=== PATIENT | female | born 2000 | race Hispanic/Latino ===

== ENCOUNTER 2021-01-06 14:19 | Emergency (ER) | payer BC ==
[~2021-01-06] VITALS: Ht 167.6 cm; Wt 65.3 kg
[2021-01-06] MEDS ORDERED: TETANUS/DIPHTHERIA TOXOID [ADULT] 0.5 ML VIAL IM SCH (15:45)
[2021-01-06] MEDS ORDERED: LIDOCAINE HCL 1% 20 ML VIAL ONE (16:58)
[2021-01-06 17:11] VITALS: BP 115/65
[2021-01-06] MEDS ORDERED: CEPH500C2 PO (17:36)
[2021-01-06] MEDS ORDERED: SULF1TAB42 PO (17:36)
[2021-01-06] MEDS ORDERED: IBUP-2070 PO (17:36)
[2021-01-06 18:20] VITALS: BP 115/65
== END 2021-01-06 18:21 | disposition home or self-care (01) ==
LOC: EDH 14:19
DX: S81.812A Laceration without foreign body, left lower leg, initial encounter (principal); X58.XXXA Exposure to other specified factors, initial encounter; Y93.89 Activity, other specified; Y92.89 Other specified places as the place of occurrence of the external cause; Y99.8 Other external cause status
CPT/HCPCS: 12034; 73590; 90471; 90472; 90714

== ENCOUNTER 2024-10-30 19:03 | Emergency (ER) | payer BC ==
[~2024-10-30] VITALS: Ht 167.6 cm; Wt 68.0 kg
[~2024-10-30 19:03] MED LIST: CEPH500C2 PO; IBUP-2070 PO; SULF1TAB42 PO
--- NOTE | 2024-10-30 19:09 | NUR ---
[facility] PROVIDED COVID, FLU AND STREP SWABS COLLECTED AND SENT
[2024-10-30 19:41] LABS: RAPID GROUP A STREP negative (NEGATIVE)
[2024-10-30 19:43] LABS: SARS-CoV-2, RNA, NAAT NEGATIVE SARS CoV-2 (NEGATIVE)
[2024-10-30 19:47] LABS: INFLUENZA TYPE A Negative For Type A (NEGATIVE); INFLUENZA TYPE B Negative For Type B (NEGATIVE)
[2024-10-30 20:24] LABS: BASOPHILS # (AUTO) 0.02 K/uL (0.00-0.20); BASOPHILS % (AUTO) 0.5 % (0.0-5.0); HEMATOCRIT 38.5 % (36-48); IMMATURE GRANULOCYTE ABSOLUTE 0.01 K/uL (0-1); LYMPHOCYTES # (AUTO) 1.2 K/uL (1.0-4.8); LYMPHOCYTES % (AUTO) 32.2 % (21.0-51.0); MEAN CORPUSCULAR HEMOGLOBIN 29.1 pg (27.0-33.0); MEAN CORPUSCULAR HGB CONC 33.5 g/dL (32.0-36.0); MEAN CORPUSCULAR VOLUME 86.7 fL (79-99); MONOCYTES # (AUTO) 0.2 K/uL (0.1-1.0); MONOCYTES % (AUTO) 5.1 % (3.0-13.0); NEUTROPHILS # (AUTO) 2.3 K/uL (1.8-7.7); NEUTROPHILS % (AUTO) 61.9 % (40.0-77.0); PLATELET COUNT (AUTO) 179 K/uL (130-400); RED BLOOD CELL COUNT(AUTO) 4.44 MIL/uL (4.00-5.50); RED CELL DISTRIBUTION WIDTH 12.6 % (11.0-15.5); WHITE BLOOD COUNT (AUTO) 3.8 K/uL (4.8-10.8)
[2024-10-30 20:31] LABS: CREATININE 0.8 mg/dL (0.5-1.0); POTASSIUM 3.4 mmol/L (3.5-5.1)
[2024-10-30 20:40] LABS: APPEARANCE,URINE CLEAR (CLEAR); BILIRUBIN,URINE NEGATIVE (NEGATIVE); COLOR,URINE LIGHT-YELLOW (YELLOW); GLUCOSE, URINE (UA) NEGATIVE (NEGATIVE); KETONES,URINE NEGATIVE (NEGATIVE); LEUKOCYTE ESTERASE ,URINE 250 Leu/uL (NEGATIVE); NITRATE,URINE NEGATIVE (NEGATIVE); OCCULT BLOOD,URINE SMALL (NEGATIVE); PH,URINE 6.5 (5.0-8.0); PROTEIN,URINE NEGATIVE (NEGATIVE); UROBILINOGEN,URINE 0.2 mg/dL (0.2-1.0)
[2024-10-30 20:41] LABS: ADD UA MICROSCOPIC YES
[2024-10-30 21:02] LABS: BACTERIA,URINE RARE /HPF (None Seen); MUCUS,URINE RARE LPF (None Seen); SQUAMOUS EPITHELIAL CELL,UR RARE /HPF (0-2)
[2024-10-30] MEDS ORDERED: MACR100 PO (22:23)
--- NOTE | 2024-10-30 22:25 | ERN ---
General Chief Complaint: Fever Stated Complaint: FEVER,NAUSE Time Seen by MD: 19:05 Time Seen by Midlevel: 19:05 Source: patient History of Present Illness Allergies: Coded Allergies: No Known Drug Allergies (Unverified Allergy, Unknown, 01/06/21) Home Meds Active Scripts Ibuprofen (Ibuprofen) 600 Mg Tablet, 600 MG PO Q6H PRN for PAIN, #30 TAB Prov:LUCIEN CHEEK 01/06/21 Cephalexin (Cephalexin) 500 Mg Capsule, 500 MG PO TID for 10 Days, #30 CAP Prov:LUCIEN CHEEK 01/06/21 Sulfamethoxazole/Trimethoprim (Bactrim Ds Tablet) 1 Each Tablet, 1 TAB PO BID for 10 Days, #20 TAB 0 Refills Prov:LUCIEN CHEEK 01/06/21 Past Medical History Past Medical History: No Pertinent History Past Surgical History: None Family History Family History: Negative Social History Social History: Negative, Lives with family Female( History) LMP: Oct 28, 2024 Results Laboratory and Microbiology Lab and Micro Result Laboratory Tests Test 10/30/24 19:00 10/30/24 20:18 10/30/24 20:20 Influenza Type A Antigen Negative For Type A Influenza Type B Antigen Negative For Type B SARS-CoV-2, RNA, NAAT NEGATIVE SARS CoV-2 Group A Streptococcus Rapid negative (NEGATIVE) White Blood Count 3.8 K/uL (4.8-10.8) L Red Blood Count 4.44 MIL/uL (4.00-5.50) Hemoglobin 12.9 g/dL (12.0-16.0) Hematocrit 38.5 % (36-48) Mean Corpuscular Volume 86.7 fL (79-99) Mean Corpuscular Hemoglobin 29.1 pg (27.0-33.0) Mean Corpuscular Hemoglobin Concent 33.5 g/dL (32.0-36.0) Red Cell Distribution Width 12.6 % (11.0-15.5) Platelet Count 179 K/uL (130-400) Mean Platelet Volume 9.2 fL (7.5-10.5) Immature Granulocyte % (Auto) 0.3 % (0-1) Neutrophils (%) (Auto) 61.9 % (40.0-77.0) Lymphocytes (%) (Auto) 32.2 % (21.0-51.0) Monocytes (%) (Auto) 5.1 % (3.0-13.0) Eosinophils (%) (Auto) 0.0 % (0.0-8.0) Basophils (%) (Auto) 0.5 % (0.0-5.0) Neutrophils # (Auto) 2.3 K/uL (1.8-7.7) Lymphocytes # (Auto) 1.2 K/uL (1.0-4.8) Monocytes # (Auto) 0.2 K/uL (0.1-1.0) Eosinophils # (Auto) 0.00 K/uL (0.00-0.70) Basophils # (Auto) 0.02 K/uL (0.00-0.20) Absolute Immature Granulocyte (auto 0.01 K/uL (0-1) Nucleated Red Blood Cells 0.0 % (0.0-0.19) Sodium Level 138 mmol/L (136-145) Potassium Level 3.4 mmol/L (3.5-5.1) L Chloride Level 101 mmol/L (101-111) Carbon Dioxide Level 29 mmol/L (21-32) Blood Urea Nitrogen 6 mg/dL (7-18) L Creatinine 0.8 mg/dL (0.5-1.0) Glomerular Filtration Rate Calc 104 mL/min (>90) Random Glucose 111 mg/dL (70-105) H Total Calcium 8.4 mg/dL (8.5-10.1) L Urine Color LIGHT-YELLOW (YELLOW) Urine Appearance CLEAR (CLEAR) Urine pH 6.5 (5.0-8.0) Urine Specific Crane 1.008 (1.001-1.031) Urine Protein NEGATIVE mg/dL (NEGATIVE) Urine Glucose (UA) NEGATIVE mg/dL (NEGATIVE) Urine Ketones NEGATIVE mg/dL (NEGATIVE) Urine Occult Blood SMALL (NEGATIVE) H Urine Nitrate NEGATIVE (NEGATIVE) Urine Bilirubin NEGATIVE mg/dL (NEGATIVE) Urine Urobilinogen 0.2 mg/dL (0.2-1.0) Urine Leukocyte Esterase 250 Enoc/uL (NEGATIVE) H Urine RBC 2-5 /HPF (0-1) H Urine WBC 6-10 /HPF (0-1) H Urine Squamous Epithelial Cells RARE /HPF (0-2) Urine Bacteria RARE /HPF (None Seen) ED Course Orders Procedure Category Date Status Time Urinalysis Profile LAB 10/30/24 Complete 19:08 Influenza Type A & B, LAB 10/30/24 Complete Rapid 19:08 Rapid (Group A Strep) LAB 10/30/24 Complete 19:08 Covid Rna Naat LAB 10/30/24 Complete 19:08 Cbc With Differential LAB 10/30/24 Complete 19:16 Basic Metabolic Panel LAB 10/30/24 Complete 19:16 Culture Urine LARRY 10/30/24 In Process 20:41 Vital Signs Date Time Temp Pulse Resp B/P (MAP) Pulse Ox O2 Delivery O2 Flow Rate FiO2 10/30/24 19:05 98.6 87 20 121/75 98 Room Air DX & DISP Disposition: Discharge Departure Impression: Primary Impression: Urinary tract infection Condition: Stable Scripts Nitrofurantoin/Nitrofuran Mac (Macrobid) 100 Mg Cap 1 CAP PO BID for 5 Days, #10 CAP 0 Refills Prov: YARITZA ERICKSON 10/30/24 Additional Instructions: Your blood work today is unremarkable. You are not anemic. Your kidney function is normal. Your electrolytes are normal. You tested negative for influenza a, influenza B, COVID-19, and strep. Your urinalysis shows evidence of infection. Follow up with your primary care doctor in two three days for repeat evaluation. Referrals: LINDSEY MAN MD (PCP) I have reviewed the case, and I agree with, Diagnosis and Plan YARITZA ERICKSON Oct 30, 2024 22:25
[2024-10-30 22:35] VITALS: BP 120/75; PULSE 80; RESP 16; TEMP 98; O2SAT 100
== END 2024-10-30 22:40 | disposition home or self-care (01) ==
LOC: EDH 19:03
DX: N39.0 Urinary tract infection, site not specified (principal); Z20.822 Contact with and (suspected) exposure to COVID-19; Z79.899 Other long term (current) drug therapy
CPT/HCPCS: 36415; 80048; 81001; 85025; 87086; 87635; 87804; 87880; 99283